=== PATIENT | female | born 1990 | race African-American/Black ===

== ENCOUNTER 2020-02-17 15:54 | Inpatient (IN) | payer OTHER ==
[~2020-02-17] VITALS: Ht 165.1 cm; Wt 84.1 kg
[2020-02-17] MEDS ORDERED: MISOPROSTOL 200 MCG TABLET ONE (16:26)
[2020-02-17] MEDS ORDERED: NEWBORN KIT ONE (16:26)
[2020-02-17] MEDS ORDERED: LIDOCAINE 1%, 20ML ONE (16:26)
[2020-02-17] MEDS ORDERED: OXYTOCIN 30U/ 0.9% NaCL 500ML 500 ML ONE (16:26)
[2020-02-17] MEDS ORDERED: MISOPROSTOL 25 MCG TABLET PO PRN (16:30)
[2020-02-17] MEDS ORDERED: TERBUTALINE 1 MG/ML, 1ML SQ PRN (16:30)
[2020-02-17] MEDS ORDERED: OXYTOCIN 30U/ 0.9% NaCL 500ML 500 ML IV PRN (16:30)
[2020-02-17] MEDS ORDERED: OXYTOCIN 30U/ 0.9% NaCL 500ML 500 ML IV ONE (16:30)
[2020-02-17] MEDS ORDERED: FENTANYL PF 100 MCG/2ML IV PRN (16:30)
[2020-02-17] MEDS ORDERED: PLEASE ENTER HEIGHT AND WEIGHT MC SCH (16:30)
[2020-02-17] MEDS ORDERED: D5%-LACTATED RINGERS 1,000 ML IV SCH (16:30)
[2020-02-17] MEDS ORDERED: TERBUTALINE 1 MG/ML, 1ML IVPush PRN (16:30)
[2020-02-17] MEDS ORDERED: FENTANYL PF 100 MCG/2ML IVPush PRN (16:30)
[2020-02-17] MEDS ORDERED: ONDANSETRON 2MG/ML, 2ML IVPush PRN (16:30)
[2020-02-17 16:33] LABS: CREATININE,URINE RANDOM 55.3 mg/dL
[2020-02-17] MEDS ORDERED: MISOPROSTOL 25 MCG TABLET ONE ×2 (16:34→16:43)
[2020-02-17 16:35] LABS: MICROSCOPIC INDICATED
[2020-02-17 16:36] LABS: BASOPHILS % (AUTO) 0 % (0-1); EOSINOPHILS % (AUTO) 1 % (1-7); LYMPHOCYTES % (AUTO) 30 % (22-44); MEAN CORPUSCULAR HEMOGLOBIN 29.7 pg (27.0-34.8); MEAN CORPUSCULAR HGB CONC 33.7 g/dL (32.4-35.8); MEAN PLATELET VOLUME 9.5 fL (7.4-10.4); MONOCYTES % (AUTO) 7 % (2-9); NEUTROPHILS % (AUTO) 62 % (42-75); PLATELET COUNT 178 x10^3/uL (130-400); RED BLOOD COUNT 4.33 x10^6/uL (3.82-5.3); RED CELL DISTRIBUTION WIDTH 14.6 % (9.6-15.2)
[2020-02-17 16:38] LABS: MD NO
[2020-02-17 16:41] LABS: ALANINE AMINOTRANSFERASE 17 U/L (12-78); ALBUMIN 2.8 g/dL (3.4-5.0); ANION GAP 10 mmol/L (5-15); CALCIUM 9.5 mg/dL (8.5-10.1); CHLORIDE 106 mmol/L (98-107); CREATININE 0.58 mg/dL (0.55-1.02)
[2020-02-17 16:44] LABS: ALKALINE PHOSPHATASE 127 U/L (45-117); BILIRUBIN,TOTAL 0.2 mg/dL (0.2-1.0); TOTAL PROTEIN 6.8 g/dL (6.4-8.2)
[2020-02-17] MEDS: LACTATED RINGERS 1,000 ML IV SCH (17:00)
[2020-02-17] MEDS ORDERED: PREN1TAB60 PO (17:48)
[2020-02-17] MEDS ORDERED: ASPI-515 PO (17:48)
[2020-02-17] MEDS ORDERED: FAMO-79 PO (18:21)
[2020-02-17 18:29] VITALS: BP 146/101
[2020-02-17 21:15] VITALS: BP 131/78
[2020-02-18 08:17] VITALS: BP 103/55
[2020-02-18] MEDS ORDERED: OXYTOCIN 30U/ 0.9% NaCL 500ML 500 ML IV PRN (10:30)
[2020-02-18] MEDS: LACTATED RINGERS 1,000 ML IV SCH ×3 (11:07→17:44)
[2020-02-18] MEDS ORDERED: BUPIVACAINE 0.25% ONE (12:02)
[2020-02-18] MEDS ORDERED: FENTANYL/BUPIV./NS/PF 250 ML EPIDCONT ONE (12:02)
[2020-02-18] MEDS ORDERED: ONDANSETRON 2MG/ML, 2ML ONE (17:39)
[2020-02-18] MEDS ORDERED: ACETAMINOPHEN 325 MG TABLET ONE (22:45)
[2020-02-19] MEDS ORDERED: IBUPROFEN 600 MG TABLET ONE (02:53)
[2020-02-19] MEDS ORDERED: OXYTOCIN 30U/ 0.9% NaCL 500ML 500 ML ONE ×2 (02:53→03:57)
[2020-02-19] MEDS: IBUPROFEN 600 MG TABLET PO PRN ×2 (02:59→08:53)
[2020-02-19] MEDS: OXYTOCIN 30U/ 0.9% NaCL 500ML 500 ML IV SCH ×3 (02:59→23:00)
[2020-02-19] MEDS ORDERED: OXYcodone/APAP 5/325MG TABLET PO PRN (03:00)
[2020-02-19] MEDS ORDERED: SIMETHICONE 80 MG CHEW TAB PO PRN (03:00)
[2020-02-19] MEDS ORDERED: ACETAMINOPHEN 325 MG TABLET PO PRN (03:00)
[2020-02-19] MEDS ORDERED: ONDANSETRON 2MG/ML, 2ML IV PRN (03:00)
[2020-02-19] MEDS ORDERED: MISOPROSTOL 200 MCG TABLET PR PRN (03:00)
[2020-02-19] MEDS ORDERED: OXYcodone IR 5MG TABLET PO PRN (03:00)
[2020-02-19 05:20] VITALS: BP 130/80
[2020-02-19] MEDS: DOCUSATE 100 MG CAPSULE PO PRN ×2 (08:53→20:05)
[2020-02-19] MEDS: PRENATAL VIT/IRON/FA 1 EACH TABLET PO SCH (08:53)
[2020-02-19 09:00] VITALS: BP 133/89
[2020-02-19 10:50] LABS: BASOPHILS % (AUTO) 0 % (0-1); EOSINOPHILS % (AUTO) 0 % (1-7); LYMPHOCYTES % (AUTO) 10 % (22-44); MEAN CORPUSCULAR HEMOGLOBIN 29.8 pg (27.0-34.8); MEAN CORPUSCULAR HGB CONC 33.3 g/dL (32.4-35.8); MEAN PLATELET VOLUME 8.9 fL (7.4-10.4); MONOCYTES % (AUTO) 6 % (2-9); NEUTROPHILS % (AUTO) 84 % (42-75); PLATELET COUNT 153 x10^3/uL (130-400); RED BLOOD COUNT 3.56 x10^6/uL (3.82-5.3); RED CELL DISTRIBUTION WIDTH 14.6 % (9.6-15.2)
[2020-02-19 10:56] LABS: MD NO
[2020-02-19 13:00] VITALS: BP 132/88
[2020-02-19 17:00] VITALS: BP 133/88
[2020-02-19 20:00] VITALS: BP 132/86
[2020-02-20 00:30] VITALS: BP 126/84
[2020-02-20] MEDS: IBUPROFEN 600 MG TABLET PO PRN ×2 (00:48→07:28)
[2020-02-20] MEDS: DOCUSATE 100 MG CAPSULE PO PRN (07:28)
[2020-02-20] MEDS: PRENATAL VIT/IRON/FA 1 EACH TABLET PO SCH (07:28)
[2020-02-20 07:36] VITALS: BP 134/90
[2020-02-20] MEDS ORDERED: IBUP-1222 PO (08:18)
[2020-02-20] MEDS: OXYTOCIN 30U/ 0.9% NaCL 500ML 500 ML IV SCH (09:00)
== END 2020-02-20 12:45 | disposition home or self-care (01) | DRG 807 ==
LOC: LDOP 15:54 → LDIP 16:23 → 2NW 02-19 05:18
PROVIDERS: ADMIT Obstetrics & Gynecology; ATTEND Obstetrics & Gynecology
PROC: 10E0XZZ Delivery of Products of Conception, External Approach (ICD-10-PCS; principal; 2020-02-17)
PROC: 0KQM0ZZ Repair Perineum Muscle, Open Approach (ICD-10-PCS; 2020-02-17)
PROC: 3E0R3BZ Introduction of Anesthetic Agent into Spinal Canal, Percutaneous Approach (ICD-10-PCS; 2020-02-17)
PROC: 00HU33Z Insertion of Infusion Device into Spinal Canal, Percutaneous Approach (ICD-10-PCS; 2020-02-17)
DX: O13.4 Gestational [pregnancy-induced] hypertension without significant proteinuria, complicating childbirth (principal); Z37.0 Single live birth; O34.211 Maternal care for low transverse scar from previous cesarean delivery; Z3A.39 39 weeks gestation of pregnancy; O70.1 Second degree perineal laceration during delivery; Z20.828 Contact with and (suspected) exposure to other viral communicable diseases
CPT/HCPCS: 36415; 80053; 81001; 82570; 84156; 84550; 85025; 86592; 86850; 86900; 87635; G0378; J2405; J2590; J3010; J7120